=== PATIENT | female | born 1995 | race Caucasian/White ===

== ENCOUNTER 2019-05-18 12:03 | Emergency (ER) | payer BC ==
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
[2019-05-18] MEDS ORDERED: Bacitracin Oint 1 GM U/D Packet TOP ONE (12:29)
[2019-05-18] MEDS ORDERED: Diphtheria,Pertussis(Acell),Tetanus Vaccine 0.5 ML Syringe IM ONE (13:00)
== END 2019-05-18 12:46 | disposition home or self-care (01) ==
LOC: MW.ED 12:03
DX: S41.052A Open bite of left shoulder, initial encounter (principal); S40.812A Abrasion of left upper arm, initial encounter; S40.811A Abrasion of right upper arm, initial encounter; S00.81XA Abrasion of other part of head, initial encounter; S10.91XA Abrasion of unspecified part of neck, initial encounter; S50.812A Abrasion of left forearm, initial encounter; Z23 Encounter for immunization; W55.01XA Bitten by cat, initial encounter; Z88.6 Allergy status to analgesic agent
CPT/HCPCS: 90471; 90715; 99283

== ENCOUNTER 2019-07-20 20:02 | Emergency (ER) | payer BC ==
--- NOTE | 2019-07-20 20:27 | EDM.PDOC ---
ED HPI GENERAL MEDICAL PROBLEM - General Chief Complaint: Bite:Animal, Insect Stated Complaint: RT WRIST INJURY;CAT ATTACK Time Seen by Provider: 07/20/19 20:26 Source of Information: Reports: Patient History Limitations: Reports: No Limitations - History of Present Illness INITIAL COMMENTS - FREE TEXT/NARRATIVE: HISTORY AND PHYSICAL: History of present illness: Patient is a 23-year-old female presents ED Bite to her right hand and forearm. Patient was normal shoulder and states that she was bit by cat this afternoon. She washed the wound out later this evening started developing redness and swelling on the bite near thumb. She states she has pain with moving her thumb and is concerned she cut a tendon. She denies fevers, chills, nausea, vomiting. Review of systems: As per history of present illness and below otherwise all systems reviewed and negative. Past medical history: As per history of present illness and as reviewed below otherwise noncontributory. Surgical history: As per history of present illness and as reviewed below otherwise noncontributory. Social history: No reported history of drug or alcohol abuse. Family history: As per history of present illness and as reviewed below otherwise noncontributory. Physical exam: General: Patient sitting comfortably in no acute distress and nontoxic appearing HEENT: Atraumatic, normocephalic, pupils reactive, negative for conjunctival pallor or scleral icterus, mucous membranes moist, throat clear, neck supple, nontender, trachea midline. No meningeal signs. Lungs: Clear to auscultation, breath sounds equal bilaterally, chest nontender. Heart: S1S2, regular, negative for clicks, rubs, or overt murmur. Abdomen: Soft, nondistended, nontender. Negative for masses or hepatosplenomegaly. Negative for costovertebral tenderness. No rigidity, rebound , guarding. Pelvis: Stable nontender. Genitourinary: Deferred. Rectal: Deferred. Extremities: 2 bite posey to the right distal forearm, 1 to the right hand near the MCP of the thumb with surrounding erythema and swelling. Patient is able to flex and extend the thumb and all digits at all joints. negative for cords or calf pain. Neurovascular unremarkable. Neuro: Awake, alert, oriented. Cranial nerves II through XII unremarkable. Cerebellum unremarkable. Motor and sensory unremarkable throughout. Exam nonfocal. Notes: Diagnostics: x-ray right hand Therapeutics: Prescriptions: Augmentin Impression: cat bite Plan: Take antibiotic as instructed Follow up with primary care provider Return to ED as needed as discussed Definitive disposition and diagnosis as appropriate pending reevaluation and review of above. right forearm Pain Score (Numeric/FACES): 6 - Related Data Allergies Allergy/AdvReac Type Severity Reaction Status Date / Time ibuprofen Allergy Hives Verified 07/20/19 20:33 Home Meds: Home Meds Anti Anxiety 05/18/19 [History] Anti Depressant 05/18/19 [History] Amoxicillin/Potassium Clav [Augmentin 875-125 Tablet] 1 each PO BID 7 Days #14 tablet 07/20/19 [Rx] Past Medical History HEENT History: Reports: Impaired Vision - Past Surgical History GI Surgical History: Reports: Cholecystectomy Social & Family History - Family History Family Medical History: Noncontributory ED ROS GENERAL - Review of Systems Review Of Systems: ROS reveals no pertinent complaints other than HPI. ED EXAM, ANIMAL BITE - Physical Exam Exam: See Below (see dictation) Course - Vital Signs Last Recorded V/S: Last Vital Signs Temp 97 F 07/20/19 20:10 Pulse 100 07/20/19 20:10 Resp 18 07/20/19 20:10 BP 111/85 07/20/19 20:10 Pulse Ox 95 07/20/19 20:10 - Orders/Labs/Meds Meds: Medications Discontinued Medications Generic Name Dose Route Start Last Admin Trade Name Mariza PRN Reason Stop Dose Admin Bacitracin 1 dose 07/20/19 21:06 Bacitracin Oint 1 Gm TOP 07/20/19 21:07 ONETIME ONE Departure - Departure Time of Disposition: 21:11 Disposition: Home, Self-Care 01 Condition: Good Clinical Impression: Cat bite Clinical Impression: (Ruled Out): Cat scratch - Discharge Information Prescriptions: Amoxicillin/Potassium Clav [Augmentin 875-125 Tablet] 1 each PO BID 7 Days #14 tablet Referrals: Araceli Taylor NP [Primary Care Provider] - Forms: ED Department Discharge Additional Instructions: The following information is given to patients seen in the emergency department who are being discharged to home. This information is to outline your options for follow-up care. We provide all patients seen in our emergency department with a follow-up referral. The need for follow-up, as well as the timing and circumstances, are variable depending upon the specifics of your emergency department visit. If you don't have a primary care physician on staff, we will provide you with a referral. We always advise you to contact your personal physician following an emergency department visit to inform them of the circumstance of the visit and for follow-up with them and/or the need for any referrals to a consulting specialist. The emergency department will also refer you to a specialist when appropriate. This referral assures that you have the opportunity for follow-up care with a specialist. All of these measure are taken in an effort to provide you with optimal care, which includes your follow-up. Under all circumstances we always encourage you to contact your private physician who remains a resource for coordinating your care. When calling for follow-up care, please make the office aware that this follow-up is from your recent emergency room visit. If for any reason you are refused follow-up, please contact the [facility] Emergency Department at and asked to speak to the emergency department charge nurse. [facility] Primary Care [address] [place] [id number] [place] [address] Take antibiotic as instructed Follow up with primary care provider Return to ED as needed as discussed
[2019-07-20] MEDS ORDERED: Bacitracin Oint 1 GM U/D Packet TOP ONE (21:06)
--- NOTE | 2019-07-20 21:09 | CR ---
INDICATION: CAT bite TECHNIQUE: Three views right hand COMPARISON: None FINDINGS: Bones: Alignment is normal. No fractures or bone lesions. Joint spaces: Unremarkable. Soft tissues: Unremarkable. IMPRESSION: Negative. Dictated by Waldemar Lim MD @ 07/20/2019 9:07:05 PM Dictated by: Waldemar Lim MD @ 07/20/2019 21:07:13 (Electronically Signed)
== END 2019-07-20 21:23 | disposition home or self-care (01) ==
LOC: MW.ED 20:02
DX: S51.851A Open bite of right forearm, initial encounter (principal); S61.451A Open bite of right hand, initial encounter; Z88.6 Allergy status to analgesic agent; Z90.49 Acquired absence of other specified parts of digestive tract; W55.01XA Bitten by cat, initial encounter
CPT/HCPCS: 73130-26-RT; 73130-RT; 99283-25

== ENCOUNTER 2021-07-18 05:27 | Emergency (ER) | payer BC ==
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
== END 2021-07-18 06:13 | disposition home or self-care (01) ==
LOC: MW.ED 05:27
DX: T65.891A Toxic effect of other specified substances, accidental (unintentional), initial encounter (principal); T23.502A Corrosion of first degree of left hand, unspecified site, initial encounter; T22.512A Corrosion of first degree of left forearm, initial encounter; Z88.6 Allergy status to analgesic agent; Z91.040 Latex allergy status
CPT/HCPCS: 99283